=== PATIENT | female | born 1945 | race Caucasian/White ===

== ENCOUNTER 2016-05-01 11:52 | Day surgery (SDC) | payer MEDICARE ==
[~2016-05-01] VITALS: Ht 165.1 cm; Wt 72.2 kg
[~2016-05-01 11:52] MED LIST: CARDIZEM ER 12120 MG PO; COMBIRESP IH; COUMADIN 1010 MG/TAB PO; DALIRESP500 MCG PO; ELIQUIS 5MG PO; FORT1000TA; GAS AID MAXIMU125 MG; K-DUR 2020 MEQ PO; LASIX 20MG TABL20 MG PO; LIPITOR20 MG PO; LORTAB 10/500 51 TAB PO; LYRICA 50MG CAP50 MG PO; MEDROL 4MG DOSPA4 MG PO; MOBIC15 MG PO; NAPROSYN500 MG PO; PERCOCET 325 MG1 TA2 PO; REGLAN 10MG10 MG/TAB PO; RT ADVAIR 128 DISKUS IH; SAVELLA50 MG PO; SINGULAIR 110 MG/TAB PO; ULTRAM ER100 MG PO; VESICARE 5MG5 MG PO; ZANTAC 150MG T150 MG PO; ZOLOFT 100MG100 MG PO
[2016-05-01 13:04] VITALS: BP 111/50; PULSE 89; TEMP 99
[2016-05-01 15:32] VITALS: BP 118/44; PULSE 93; TEMP 98.2
[2016-05-01] MEDS ORDERED: ZOFRAN ODT4 MG PO (15:42)
[2016-05-01] MEDS ORDERED: PERCOCET 325 MG1 TA2 PO (15:42)
[2016-05-01 15:47] VITALS: BP 110/64; PULSE 93
[2016-05-01 16:02] VITALS: BP 128/58; PULSE 100
[2016-05-01 16:17] VITALS: PULSE 95
== END 2016-05-01 16:30 | disposition home or self-care (01) ==
LOC: SDCO 11:52
DX: C25.9 Malignant neoplasm of pancreas, unspecified (principal); I10 Essential (primary) hypertension; M19.90 Unspecified osteoarthritis, unspecified site; E11.9 Type 2 diabetes mellitus without complications; J45.909 Unspecified asthma, uncomplicated; F17.210 Nicotine dependence, cigarettes, uncomplicated; Z79.899 Other long term (current) drug therapy
CPT/HCPCS: C1788; J0690; J1100; J1644; J2250; J2405; J2704; J3010; J7030